=== PATIENT | male | born 1955 | race Asian ===

== ENCOUNTER 2018-05-27 15:54 | Emergency (ER) | payer OTHER ==
[2018-05-27] MEDS: IBUPROFEN 600 MG TAB PO (16:13)
== END 2018-05-27 16:55 | disposition home or self-care (01) ==
LOC: FTE 15:54
DX: M54.2 Cervicalgia (principal); I10 Essential (primary) hypertension; E11.9 Type 2 diabetes mellitus without complications; Z79.82 Long term (current) use of aspirin; Z79.84 Long term (current) use of oral hypoglycemic drugs
CPT/HCPCS: 72040; 73030-RT; 99284-25